=== PATIENT | male | born 1990 | race Two or more races ===

== ENCOUNTER 2020-08-22 | Outpatient (CLI) | payer OTHER | END 2020-08-22 09:13 | disposition home or self-care (01) | LOC: PPH VACUNA | DX: Z23 Encounter for immunization (principal) ==

== ENCOUNTER 2020-09-21 08:00 | Outpatient (CLI) | payer OTHER | END 2020-09-21 08:30 | disposition home or self-care (01) | LOC: PPH VACUNA 08:00 | DX: Z23 Encounter for immunization (principal) ==